=== PATIENT | female | born 1955 | race Caucasian/White ===

== ENCOUNTER 2018-06-07 18:58 | Inpatient (IN) | payer MEDICARE, OTHER ==
[~2018-06-07] VITALS: Ht 160 cm; Wt 70.7 kg
[~2018-06-07 18:58] MED LIST: AMLO5 PO; ASPI81EC PO; ATOR40TA; ATOR40TA PO; BIOTIN1 MG PO; BIOTINE PO; BUPR100 PO; BYDUREON P2 MG/0.65 SQ; CHOL10002 PO; CLOP75 PO; CONEST.9; Crestor40 MG PO; EZET10; FURO20; GLIP10 PO; GLIP5 PO; GLIP5ER PO; GLYB5; INSULANPEN SC; LISI20 PO; LOSARTAN POTAS100 MG PO; LOVA40 PO; METF500 PO; METF500C PO; METO25 PO; Nitrostat0.4 MG SL; OMEP40CA12 PO; PANT40 PO; PIOG15 PO; RXONDA4ODT MM; RXTRAM50 PO; SIMV40 PO; TRIHYD253A
[2018-06-07] MEDS ORDERED: LIRA0.6P SC (19:30)
[2018-06-07 20:18] LABS: BASOPHILS ABSOLUTE AUTO 0.05 K/mm3 (0.00-0.23); BASOPHILS PERCENT AUTO 0 % (0-2); EOSINOPHILS ABSOLUTE AUTO 0.22 K/mm3 (0.00-0.68); EOSINOPHILS PERCENT AUTO 2 % (0-6); Hematocrit 47.2 % (33.0-51.0); Hemoglobin 15.4 g/dL (11.5-16.0); IMMATURE GRAN ABSOLUTE AUTO 0.04 K/mm3 (0.00-0.10); IMMATURE GRAN PERCENT AUTO 0 % (0-1); LYMPHOCYTES ABSOLUTE AUTO 1.69 K/mm3 (0.84-5.20); LYMPHOCYTES PERCENT AUTO 15 % (21-46); MONOCYTES ABSOLUTE AUTO 0.71 K/mm3 (0.16-1.47); MONOCYTES PERCENT AUTO 6 % (4-13); Mean Corpuscular HGB Conc 32.6 g/dL (31.5-36.5); Mean Corpuscular Volume 95 fL (80-100); Mean Platelet Volume 9.6 fL (9.1-12.4); NEUTROPHILS PERCENT AUTO 76 % (41-73); Platelet Count 288 K/mm3 (150-400); RDW Standard Deviation 45.3 fL (35.1-46.3); Red Blood Cell Count 4.97 M/mm3 (3.80-5.20); White Blood Cell Count 11.31 K/mm3 (4.00-11.30)
[2018-06-07 20:48] LABS: Alanine Aminotransfer (ALT/SGP 30 U/L (12-78); Albumin, Blood 3.8 g/dL (3.4-5.0); Albumin/Globulin Ratio 1.1 (0.8-1.8); Alk Phos 129 U/L (50-136); Anion Gap 8 mmol/L (6-16); Aspartate Aminotrans (AST/SGOT 19 U/L (12-37); Bilirubin, Total 0.7 mg/dL (0.1-1.0); Blood Urea Nitrogen 22 mg/dL (8-24); Bun/Creatinine Ratio 28.1 (12.0-20.0); CO2, Blood 24 mmol/L (21-32); Calcium, Blood 9.6 mg/dL (8.5-10.1); Chloride, Blood 106 mmol/L (98-108); Creatinine, Blood 0.78 mg/dL (0.40-1.00); Globulin, Blood 3.6 g/dL (2.2-4.0); Glomerular Filtration Rate >60 (60-); Glucose, Blood 159 mg/dL (70-99); Potassium, Blood 4.2 mmol/L (3.5-5.5); Sodium, Blood 138 mmol/L (136-145); Total Protein, Blood 7.4 g/dL (6.4-8.2); Troponin I <0.015 ng/mL (0.000-0.040)
--- NOTE | 2018-06-08 00:17 | NUR ---
ASSUMED CARE OF PT PT ARRIVED VIA GURNEY, ABLE TO STAND AND TRANSFER TO BED WITH OUT DIFFICULTY. PT. DENIES CHEST PAIN HOWEVER REPORTS CONSTANT ACHING PAIN TO MID BACK. PT REPORTS SIMILAR PAIN TO PREVIOUS HEART EVENTS HOWEVER PREVIOUS EVENTS PT REPORTED PAIN TO LEFT ARM AND DENIES PAIN TO ARMS AT THIS TIME. PT. PROVIDED WITH SNACK UPON ARRIVAL AND BED SET UP FOR IN ROOM. PT VSS AT THIS TIME. NADN. CALL LIGHT IN REACH.
--- NOTE | 2018-06-08 01:53 | NUR ---
CARE ASSUMED CARE AND REPORT ASSUMED FROM BRIGID [facility]. PT C/O UPPER MID BACK PAIN. TYLENOL 650 MG PO GIVEN. UP TO TOILET WITH 1 PERSON MINIMAL ASSIST. VOIDED 300 ML. SLEEPING AT BEDSIDE. VSS. WILL CONTINUE TO MONITOR.
--- NOTE | 2018-06-08 03:46 | NUR ---
REASSESSMENT PT REMAINS IN BED, ATTEMPTING TO SLEEP. C/O MID UPPER BACK PAIN 11/08. FENTANYL 25 MCG IVP GIVEN. REMAINS BEDSIDE. VSS. WILL CONTINUE TO MONITOR.
[2018-06-08 06:06] LABS: Prothrombin Time Results 10.3 Sec (9.7-11.5)
--- NOTE | 2018-06-08 06:23 | NUR ---
SHIFT SUMMARY PT ATTEMPTED TO SLEEP DURING CARE BUT AWOKE FEW TIMES FROM BACK PAIN. FENTANYL 25 IVP GIVEN ONE TIME AND TYLENOL GIVEN X1. MID UPPER BACK PAIN PERSISTED. TROPONIN ELEVATED AND NOITIFED. HEPARIN GTT STARTED AT 13 UNIT/KG/HR PER PHARMACY. NITRO GTT STARTED AT 10 MCG/MIN FOR PAIN CONTROL. VSS. BP STABLE AND WILL MONITOR CLOSELY. BEDSIDE. PT STATUS CHANGED TO ICU. WILL GIVE BEDSIDE, HANDOFF REPORT TO DAY RN.
--- NOTE | 2018-06-08 07:17 | NUR ---
INTRODUCTARY VISIT... PT CONT TO C/O BACK PAIN AT 6-12/08 THAT HAS BEEN CONSISTANT FROM START OF PAIN EPISODE LAST NOC. PT DENIES SOB T/O EPISODES. WILL FOLLOW.
--- NOTE | 2018-06-08 09:30 | NUR ---
PT PAIN IN BACK AND ANTERIOR CHEST PERSIST AT LEVEL 4/10 BUT IS BETTER WITH POSITION CHANGE TO R SIDE. NTG AND FENT HAVE BEEN GIVEN AND TITRATED NOTED. DR PORTER HAS BEEN IN AND CATH PLANNED FOR EARLY PM. HEPARIN GTT TO BE D/C AT [address] PORTER.
--- NOTE | 2018-06-08 10:05 | NUR ---
ECHOCARD JUST NOW COMPLETING. PT CONT TO HAVE LOW GRADE PAIN ESPECIALLY IN SUPINE POSITION. VS NOTED ON 30MCG NTG GTT.
--- NOTE | 2018-06-08 12:01 | NUR ---
PT NOTED SL VELASCO, WILL FOLLOW. OTHER PAIN IS LESS AND STABLE AT THIS TIME.
--- NOTE | 2018-06-08 13:54 | NUR ---
1320 APPROX. PT TO SURGICAL TERRITORY MANAGER VIA BED WITH MARCUS. PT LEFT ON NTG GTT FOR NOW. PAIN STATUS BEFORE.
--- NOTE | 2018-06-08 15:40 | NUR ---
1510 PT RETURNED TO ICU-1 VIA BED. NO IVF INFUSING. PT C/O JOINT PAIN AND MEDICATED FROM LYING ON CAN CRIMPER TABLE. PT VS NOTED AND STABLE. R GROIN W/O BLEEDING OR HEMATOMA AND ONLY VERY SMALL DROP OF BLOOD ON DSG. DISTAL PULSES ARE GOOD. PT IS A/O, ON RA W/O RESP DISTRESS AND WILL FOLLOW.
--- NOTE | 2018-06-08 16:15 | NUR ---
PT Q15 MINUTE VS, GROIN, PULSE CHECKS STABLE. NS IVF AT 200ML STARTED.
--- NOTE | 2018-06-08 17:27 | NUR ---
HOB ELEVATED 15+ DEGREES AND R GROIN SITE CONT TO BE STABLE, PULSES PRESENT, VSS AND PT SIPPING ON LIQUIDS W/O DISTREES. NO BLEEDING OR HEMATOMA NOTED.
--- NOTE | 2018-06-08 18:18 | NUR ---
R GROIN SITE REMAINS STABLE W/O HEMATOMA, BLEEDING. PULSES AND VS ALSO STABLE. PT C/O JOINT AND BACK OF NECK PAIN THAT SEEMS TO BE POSITIONAL RATHER THAN CARDIAC IN NATURE. NO CHEST PAIN NOTED AT THIS TIME. PT UP 20+ DEG. LOG ROLLED TO VOID AND R GROIN SITE REMAINSED STABLE.
--- NOTE | 2018-06-08 20:00 | NUR ---
ASSUMED PT CARE AFTER BEDSIDE REPORT. PT HOB ELEVATED & EATING DINNER & VISITING W SISTER . R GROIN W AMANDA DRSG IN PLACE, SOFT WO HEMATOMA OR BLEEDING. 2+ PEDAL PULSES BILAT. VSS, MONITOR SHOWS SR WO ANY ECTOPY. PT IS ON ROOM AIR. CONT TO MONITOR.
--- NOTE | 2018-06-08 21:30 | NUR ---
PT WAS UP TO TOILET TO VOID, AMB IN ROOM, DID OWN HS CARE & ASSISTED BACK TO BED. R GROIN SITE CONT STABLE- SOFT & WO BLEEDING. HS MEDS GIVEN W REQUESTED SNACK. CALL LIGHT IN REACH.
--- NOTE | 2018-06-09 00:40 | NUR ---
PT AWAKE, UP TO VOID, CO NECK PAIN. STATES LIKE BEFORE WHEN RETURNING FROM TRAFFIC OFFICER. PT MED W TYLENOL & FENTANYL 25MCG. GROIN SITE CONT CLEAR, VSS. PT WAS PLACED ON O2 @ 2LNC WAS SATTING 89% ON RA WHILE SLEEPING. WILL CONT TO MONITOR.
[2018-06-09 03:45] LABS: BASOPHILS ABSOLUTE AUTO 0.04 K/mm3 (0.00-0.23); BASOPHILS PERCENT AUTO 1 % (0-2); EOSINOPHILS ABSOLUTE AUTO 0.17 K/mm3 (0.00-0.68); EOSINOPHILS PERCENT AUTO 3 % (0-6); Hematocrit 39.7 % (33.0-51.0); Hemoglobin 12.9 g/dL (11.5-16.0); IMMATURE GRAN ABSOLUTE AUTO 0.01 K/mm3 (0.00-0.10); IMMATURE GRAN PERCENT AUTO 0 % (0-1); LYMPHOCYTES ABSOLUTE AUTO 1.62 K/mm3 (0.84-5.20); LYMPHOCYTES PERCENT AUTO 29 % (21-46); MONOCYTES ABSOLUTE AUTO 0.57 K/mm3 (0.16-1.47); MONOCYTES PERCENT AUTO 10 % (4-13); Mean Corpuscular HGB 30.9 pg (26.0-34.0); Mean Corpuscular HGB Conc 32.5 g/dL (31.5-36.5); Mean Corpuscular Volume 95 fL (80-100); Mean Platelet Volume 9.8 fL (9.1-12.4); NEUTROPHILS ABSOLUTE AUTO 3.13 K/mm3 (1.96-9.15); NEUTROPHILS PERCENT AUTO 57 % (41-73); Platelet Count 221 K/mm3 (150-400); RDW Coefficient Variation 13.1 % (11.7-14.2); RDW Standard Deviation 46.5 fL (35.1-46.3); Red Blood Cell Count 4.17 M/mm3 (3.80-5.20); White Blood Cell Count 5.54 K/mm3 (4.00-11.30)
[2018-06-09 04:08] LABS: Anion Gap 6 mmol/L (6-16); Blood Urea Nitrogen 19 mg/dL (8-24); Bun/Creatinine Ratio 24.3 (12.0-20.0); CO2, Blood 23 mmol/L (21-32); Calcium, Blood 8.2 mg/dL (8.5-10.1); Chloride, Blood 108 mmol/L (98-108); Creatinine, Blood 0.78 mg/dL (0.40-1.00); Glomerular Filtration Rate >60 (60-); Glucose, Blood 308 mg/dL (70-99); Potassium, Blood 3.9 mmol/L (3.5-5.5); Sodium, Blood 137 mmol/L (136-145)
--- NOTE | 2018-06-09 06:00 | NUR ---
PT HAS RESTED SINCE MED FOR PAIN. VSS, CONT SR. R GROIN CONT SOFT & WO BLEEDING.
--- NOTE | 2018-06-09 07:40 | NUR ---
ASSUMED CARE: PT RESTING QUIETLY IN BED, C/O HEADACHE. MEDICATED FOR THIS. VSS. GROIN SITE SOFT WITH SCANT BLEEDING ON DRESSING. SITE IS SOFT, NONTENDER. NO NUMBNESS OR TINGLING, PULSES NOTED. BOLUS RUNNING PER ORDERS. PT HAS BEEN DIRECTED TO BRING IN HOME VICTOZA. NO FURTHER NEEDS OR CONCERNS AT THIS TIME.
[2018-06-09 16:10] LABS: Influenza A Negative (NEGATIVE); Influenza B Negative (NEGATIVE)
--- NOTE | 2018-06-09 18:28 | NUR ---
SHIFT SUMMARY: PT IS NOW PCU STATUS. SHE HASN'T COMPLAINED OF CP ALL DAY. HAS A HARSH CONGESETED SOUNDING COUGH BUT NOT PRODUCTIVE AT THIS TIME. MEDICATED ONCE FOR HEADACHE AND NECK PAIN. VISITORS AT BEDSIDE AT THIS TIME. NO FURTHER NEEDS OR CONCERNS
--- NOTE | 2018-06-09 20:30 | NUR ---
[place] of Care: Patient alert and oriented x4, sitting upright in bed watching tv. Denies chest pain, discomfort, SOB, or dyspnea. Does c/o neck pain 8/, prn fentanyl 25mcg given, will monitor for effect, pt states Tylenol given on day shift was not effective. VSS, heart rhythm shows normal sinus in the 70's. Peripheral IV's patent and intact. Rt groin access site WNL, soft, non-tender, very scant amount of dried blood noted on gauze beneath window dressing. Call light in reach, makes needs known. Will continue to monitor for pain, safety, comfort.
[2018-06-10 03:32] LABS: BASOPHILS ABSOLUTE AUTO 0.05 K/mm3 (0.00-0.23); BASOPHILS PERCENT AUTO 1 % (0-2); EOSINOPHILS ABSOLUTE AUTO 0.25 K/mm3 (0.00-0.68); EOSINOPHILS PERCENT AUTO 4 % (0-6); Hematocrit 38.5 % (33.0-51.0); Hemoglobin 12.7 g/dL (11.5-16.0); IMMATURE GRAN ABSOLUTE AUTO 0.02 K/mm3 (0.00-0.10); IMMATURE GRAN PERCENT AUTO 0 % (0-1); LYMPHOCYTES ABSOLUTE AUTO 1.86 K/mm3 (0.84-5.20); LYMPHOCYTES PERCENT AUTO 28 % (21-46); MONOCYTES ABSOLUTE AUTO 0.73 K/mm3 (0.16-1.47); MONOCYTES PERCENT AUTO 11 % (4-13); Mean Corpuscular HGB 31.4 pg (26.0-34.0); Mean Corpuscular Volume 95 fL (80-100); Mean Platelet Volume 9.8 fL (9.1-12.4); NEUTROPHILS ABSOLUTE AUTO 3.81 K/mm3 (1.96-9.15); NEUTROPHILS PERCENT AUTO 57 % (41-73); Platelet Count 223 K/mm3 (150-400); Red Blood Cell Count 4.04 M/mm3 (3.80-5.20); White Blood Cell Count 6.72 K/mm3 (4.00-11.30)
[2018-06-10 03:55] LABS: Anion Gap 6 mmol/L (6-16); Blood Urea Nitrogen 18 mg/dL (8-24); Bun/Creatinine Ratio 25.9 (12.0-20.0); CO2, Blood 23 mmol/L (21-32); Chloride, Blood 112 mmol/L (98-108); Creatinine, Blood 0.69 mg/dL (0.40-1.00); Glomerular Filtration Rate >60 (60-); Glucose, Blood 140 mg/dL (70-99); Sodium, Blood 141 mmol/L (136-145)
--- NOTE | 2018-06-10 05:55 | NUR ---
Shift Summary: Patient slept well throughout shift, easily roused via verbal stimuli, oriented x4. C/o pain to neck x2, effectively managed with prn fentanyl 25mcg x2 and prn tylenol x1. Denies chest pain, discomfort, or pressure throughout shift. Morning lab values showed increase in troponin form 7.38 to 7.87, contacted Dr. Driscoll, no new orders received. Independent in room, x2 unmeasured voids. Peripheral IV's remain patent and intact. Pleasant and cooperative with staff, makes needs known. Will continue to monitor until report to day shift RN.
--- NOTE | 2018-06-10 07:48 | NUR ---
ASSUMED CARE: PT IS RESTING IN BED. C/O HEADACHE AND SHOULDER PAIN. COUGH NOTED, SPUTUM SAMPLE SENT. DENIES CHEST PAIN OR OTHER CONCERNS AT THIS TIME. WILL MEDICATE WHEN ABLE
--- NOTE | 2018-06-10 12:00 | NUR ---
SPOKE WITH DR JACKSON REGARDING PT'S HEADACHE AND INCREASED TROPONIN. SEE NEW ORDERS. ALSO TOLD ABOUT PT'S VICTOZA THAT HAS BEEN UNAVAILABLE DUE TO HOSPITAL NOT HAVING IT.
[2018-06-10] MEDS ORDERED: GUAI600T33 PO (14:37)
[2018-06-10] MEDS ORDERED: ACET325 PO (14:37)
[2018-06-10] MEDS ORDERED: RANO500T PO (14:38)
[2018-06-10] MEDS ORDERED: ALBU90OI INH (14:38)
[2018-06-10] MEDS ORDERED: TIOT18 INH (14:39)
[2018-06-10] MEDS ORDERED: AZIT250 PO (14:39)
--- NOTE | 2018-06-10 16:14 | NUR ---
PT'S IV'S DC'D WNL. PT GIVEN INSTRUCTIONS ABOUT FOLLOW UP APPOINTMENTS AND MEDICATIONS TO TAKE AT HOME. MEDS FAXED TO [facility]. FOR QUESTIONS PHARMACY WAS REFERRED TO DR JACKSON. PT WAS AMBULATORY UPON DISCHARGE AND TAXI WAS CALLED TO TAKE HER HOME. NO FURTHER QUESTIONS OR CONCERNS
== END 2018-06-10 16:01 | disposition home or self-care (01) | DRG 281 ==
LOC: ER 18:58 → ERHOLD 18:59 → ICUE 18:59 → ERHOLD 18:59 → ICUE 23:24
PROVIDERS: Emergency Medicine; Family Medicine; ADMIT Internal Medicine
PROC: B2111ZZ Fluoroscopy of Multiple Coronary Arteries using Low Osmolar Contrast (ICD-10-PCS; principal; 2018-06-08)
PROC: B2121ZZ Fluoroscopy of Single Coronary Artery Bypass Graft using Low Osmolar Contrast (ICD-10-PCS; 2018-06-08)
PROC: 4A023N7 Measurement of Cardiac Sampling and Pressure, Left Heart, Percutaneous Approach (ICD-10-PCS; 2018-06-08)
DX: I21.4 Non-ST elevation (NSTEMI) myocardial infarction (principal); J44.1 Chronic obstructive pulmonary disease with (acute) exacerbation; Z95.1 Presence of aortocoronary bypass graft; M79.7 Fibromyalgia; E11.40 Type 2 diabetes mellitus with diabetic neuropathy, unspecified; Z79.4 Long term (current) use of insulin; Z79.82 Long term (current) use of aspirin; I25.10 Atherosclerotic heart disease of native coronary artery without angina pectoris; F17.200 Nicotine dependence, unspecified, uncomplicated; I10 Essential (primary) hypertension; E78.5 Hyperlipidemia, unspecified; Z79.02 Long term (current) use of antithrombotics/antiplatelets; I95.9 Hypotension, unspecified
CPT/HCPCS: 36415; 71046; 80048; 80053; 82947; 83880; 84484; 85025; 85610; 85730; 86850; 86900; 86901; 87070; 87205; 87804; 93005; 93010; 93306; 93459; 96365; 96366; 96374; 96375; 96376; 99152; 99153; 99285-25; C1769; C1894; G0378; J0696; J1644; J1815; J2250; J2405; J3010; J7030; J7040; Q9967

== ENCOUNTER 2022-05-14 08:39 | Day surgery (SDC) | payer MEDICARE, OTHER ==
[~2022-05-14] VITALS: Ht 160 cm; Wt 65.3 kg
[~2022-05-14 08:39] MED LIST changes: +ACET325 PO; +ALBU90OI INH; +AZIT250 PO; +GUAI600T33 PO; +LIRA0.6P SC; +RANO500T PO; +TIOT18 INH
--- NOTE | 2022-05-14 12:01 | NUR ---
05/14/22 1201 Charisma Bustamante RECEIVED REPORT ON PT FROM RN JOANIE OLVERA. PT'S BLOOD PRESSURE AFTER FIRST READING IN NOW OVER 100 SBP (SEE VITALS). UNABLE TO PROCEED WITH UPPER ENDOSCOPY DUE TO LOW BLOOD PRESSURE DESPITE MULTIPLE DOSES OF EPHEDRINE AND SWITCHING TO VERSED AND STOPPING PROPOFOL. PT RESCHEDULED TO ThuMAY 19, 2022 CHECK IN TIME 1300-PROCEDURE TIME 1415 FOR UPPER ENDOSCOPY. D/C TEACHING DONE WITH REGARDS TO STARTING PLAVIX AND THURSDAY AND HOLDING PLAVIX THU/THU/THU/THU FOR UPPER ENDOSCOPY PROCEDURE. MD DOMINGO WILL ADDRESS THU ON WHEN TO RESTART PLAVIX. PT OBSERVED FOR 50MINUTES IN RECOVERY AND D/C TO HOME WITH W/C ASSIST TO CAR.
--- NOTE | 2022-05-14 12:37 | NUR ---
05/14/22 1237 JOANIE TORRES UPPER ENDOSCOPY - WAS ABORTED PRIOR TO STARTING PT COULD NOT MAINTAIN HER BP DESPITE EPHEDRINE AND MINIMAL SEDATION WITH COLONSCOPY. IT IS RESCHEDULED FOR THURSDAY WITH MAC
== END 2022-05-14 12:03 | disposition home or self-care (01) ==
LOC: ORSCSDS 08:39
PROVIDERS: Internal Medicine Gastroenterology
PROC: 0DBH8ZX Excision of Cecum, Via Natural or Artificial Opening Endoscopic, Diagnostic (ICD-10-PCS; principal; 2022-05-14 10:00)
PROC: 0DBM8ZX Excision of Descending Colon, Via Natural or Artificial Opening Endoscopic, Diagnostic (ICD-10-PCS; principal; 2022-05-14 10:00)
PROC: 0DBL8ZX Excision of Transverse Colon, Via Natural or Artificial Opening Endoscopic, Diagnostic (ICD-10-PCS; principal; 2022-05-14 10:00)
PROC: 0DBE8ZX Excision of Large Intestine, Via Natural or Artificial Opening Endoscopic, Diagnostic (ICD-10-PCS; principal; 2022-05-14 10:00)
PROC: 0DBK8ZX Excision of Ascending Colon, Via Natural or Artificial Opening Endoscopic, Diagnostic (ICD-10-PCS; principal; 2022-05-14 10:00)
DX: R19.5 Other fecal abnormalities (principal); Z86.010 Personal history of colon polyps; K22.70 Barrett's esophagus without dysplasia; D12.0 Benign neoplasm of cecum; D12.2 Benign neoplasm of ascending colon; D12.4 Benign neoplasm of descending colon; K57.30 Diverticulosis of large intestine without perforation or abscess without bleeding; Z79.02 Long term (current) use of antithrombotics/antiplatelets; F17.210 Nicotine dependence, cigarettes, uncomplicated; Z79.899 Other long term (current) drug therapy; E03.9 Hypothyroidism, unspecified; E78.5 Hyperlipidemia, unspecified; I12.9 Hypertensive chronic kidney disease with stage 1 through stage 4 chronic kidney disease, or unspecified chronic kidney disease; E11.22 Type 2 diabetes mellitus with diabetic chronic kidney disease; N18.30 Chronic kidney disease, stage 3 unspecified; Z79.4 Long term (current) use of insulin; Z79.84 Long term (current) use of oral hypoglycemic drugs
CPT/HCPCS: 82947; 88305; J2250; J2704; J7120

== ENCOUNTER 2022-06-11 13:33 | Day surgery (SDC) | payer MEDICARE, OTHER ==
[~2022-06-11] VITALS: Ht 160 cm; Wt 67.2 kg
[2022-06-11] MEDS ORDERED: INSULANI (13:50)
== END 2022-06-11 16:30 | disposition home or self-care (01) ==
LOC: ORSCSDS 13:33
PROVIDERS: Internal Medicine Gastroenterology
PROC: 0DB58ZX Excision of Esophagus, Via Natural or Artificial Opening Endoscopic, Diagnostic (ICD-10-PCS; principal; 2022-06-11 14:45)
PROC: 0DB68ZX Excision of Stomach, Via Natural or Artificial Opening Endoscopic, Diagnostic (ICD-10-PCS; principal; 2022-06-11 14:45)
DX: K22.70 Barrett's esophagus without dysplasia (principal); R19.5 Other fecal abnormalities; K20.90 Esophagitis, unspecified without bleeding; I10 Essential (primary) hypertension; J44.9 Chronic obstructive pulmonary disease, unspecified; E11.9 Type 2 diabetes mellitus without complications; Z95.1 Presence of aortocoronary bypass graft; F17.210 Nicotine dependence, cigarettes, uncomplicated; Z79.82 Long term (current) use of aspirin; Z79.4 Long term (current) use of insulin; Z79.84 Long term (current) use of oral hypoglycemic drugs; Z79.899 Other long term (current) drug therapy
CPT/HCPCS: 82947; 88305; 88342; J2704; J7120

== ENCOUNTER 2023-02-09 16:14 | Emergency (ER) | payer MEDICARE, OTHER ==
[~2023-02-09] VITALS: Ht 157.5 cm; Wt 64.9 kg
[~2023-02-09 16:14] MED LIST changes: -ONGLYZA5 MG; -OZEMPIC1 MG/0.72
[2023-02-09 16:54] LABS: BASOPHILS ABSOLUTE AUTO 0.05 K/mm3 (0.00-0.23); BASOPHILS PERCENT AUTO 1 % (0-2); EOSINOPHILS ABSOLUTE AUTO 0.16 K/mm3 (0.00-0.68); EOSINOPHILS PERCENT AUTO 2 % (0-6); Hematocrit 42.4 % (33.0-51.0); Hemoglobin 14.2 g/dL (11.5-16.0); IMMATURE GRAN ABSOLUTE AUTO 0.04 K/mm3 (0.00-0.10); IMMATURE GRAN PERCENT AUTO 1 % (0-1); LYMPHOCYTES ABSOLUTE AUTO 2.27 K/mm3 (0.84-5.20); LYMPHOCYTES PERCENT AUTO 26 % (21-46); MONOCYTES ABSOLUTE AUTO 0.57 K/mm3 (0.16-1.47); MONOCYTES PERCENT AUTO 7 % (4-13); Mean Corpuscular HGB 31.3 pg (26.0-34.0); Mean Corpuscular HGB Conc 33.5 g/dL (31.5-36.5); Mean Corpuscular Volume 94 fL (80-100); Mean Platelet Volume 9.6 fL (9.1-12.4); NEUTROPHILS ABSOLUTE AUTO 5.71 K/mm3 (1.96-9.15); NEUTROPHILS PERCENT AUTO 65 % (41-73); Platelet Count 278 K/mm3 (150-400); RDW Standard Deviation 44.7 fL (35.1-46.3); Red Blood Cell Count 4.53 M/mm3 (3.80-5.20)
[2023-02-09 17:20] LABS: Albumin, Blood 3.9 g/dL (3.4-5.0); Albumin/Globulin Ratio 1.3 (0.8-1.8); Bilirubin, Total 0.5 mg/dL (0.1-1.0); Bun/Creatinine Ratio 31.6 (12.0-20.0); Calcium, Blood 9.8 mg/dL (8.5-10.1); Creatinine, Blood 0.92 mg/dL (0.40-1.00); Potassium, Blood 4.1 mmol/L (3.5-5.5); Total Protein, Blood 6.9 g/dL (6.4-8.2)
[2023-02-09] MEDS ORDERED: ONGLYZA5 MG (20:37)
[2023-02-09] MEDS ORDERED: OZEMPIC1 MG/0.72 (20:38)
[2023-02-09 21:17] VITALS: BP 115/88
== END 2023-02-09 21:19 | disposition home or self-care (01) ==
LOC: ER 16:14
PROVIDERS: Physician Assistant
DX: H57.02 Anisocoria (principal); I25.2 Old myocardial infarction; E11.9 Type 2 diabetes mellitus without complications; F17.210 Nicotine dependence, cigarettes, uncomplicated; Z86.73 Personal history of transient ischemic attack (TIA), and cerebral infarction without residual deficits; Z79.82 Long term (current) use of aspirin; Z79.84 Long term (current) use of oral hypoglycemic drugs; Z79.4 Long term (current) use of insulin; Z79.899 Other long term (current) drug therapy; Z88.0 Allergy status to penicillin; Z88.8 Allergy status to other drugs, medicaments and biological substances; Z98.41 Cataract extraction status, right eye
CPT/HCPCS: 70450; 80053; 85025; 99285-25

== ENCOUNTER → 2023-02-09 | Outpatient (CLI) | payer MEDICARE, OTHER ==
[~2023-02-09] MED LIST changes: +INSULANI; +ONGLYZA5 MG; +OXAYDO5 M1 PO; +OZEMPIC1 MG/0.72
== END | disposition home or self-care (01) ==
LOC: LAB 07:48 → PLD 07:48 → LAB SHORT 07:48
DX: L82.1 Other seborrheic keratosis (principal)
CPT/HCPCS: 88305

== ENCOUNTER 2024-11-27 17:25 | Emergency (ER) | payer MEDICARE, OTHER ==
[~2024-11-27] VITALS: Ht 160 cm; Wt 61.2 kg
[~2024-11-27 17:25] MED LIST changes: +ONGLYZA5 MG; +OZEMPIC1 MG/0.72
[2024-11-27] MEDS ORDERED: Ondansetron HCl 2 MG / ML 2ML Vial IV ONE (17:35)
[2024-11-27] MEDS ORDERED: TRULICITY0.75 MG/01 SC (17:58)
[2024-11-27] MEDS ORDERED: NS 1,000 ML IV SCH (18:05)
[2024-11-27 18:14] LABS: BASOPHILS ABSOLUTE AUTO 0.03 K/mm3 (0.00-0.23); BASOPHILS PERCENT AUTO 0 % (0-2); EOSINOPHILS ABSOLUTE AUTO 0.01 K/mm3 (0.00-0.68); EOSINOPHILS PERCENT AUTO 0 % (0-6); Hematocrit 39.8 % (33.0-51.0); Hemoglobin 13.5 g/dL (11.5-16.0); IMMATURE GRAN ABSOLUTE AUTO 0.08 K/mm3 (0.00-0.10); IMMATURE GRAN PERCENT AUTO 1 % (0-1); LYMPHOCYTES ABSOLUTE AUTO 0.83 K/mm3 (0.84-5.20); LYMPHOCYTES PERCENT AUTO 5 % (21-46); MONOCYTES ABSOLUTE AUTO 1.49 K/mm3 (0.16-1.47); MONOCYTES PERCENT AUTO 9 % (4-13); Mean Corpuscular HGB 31.3 pg (26.0-34.0); Mean Corpuscular HGB Conc 33.9 g/dL (31.5-36.5); Mean Corpuscular Volume 92 fL (80-100); Mean Platelet Volume 9.5 fL (9.1-12.4); NEUTROPHILS PERCENT AUTO 85 % (41-73); Platelet Count 256 K/mm3 (150-400); RDW Coefficient Variation 13.3 % (11.7-14.2); RDW Standard Deviation 45.9 fL (35.1-46.3); Red Blood Cell Count 4.31 M/mm3 (3.80-5.20); White Blood Cell Count 16.34 K/mm3 (4.00-11.30)
[2024-11-27 18:36] LABS: Albumin, Blood 3.3 g/dL (3.4-5.0); Bilirubin, Total 0.8 mg/dL (0.1-1.0); Bun/Creatinine Ratio 32.7 (12.0-20.0); Calcium, Blood 9.6 mg/dL (8.5-10.1); Creatinine, Blood 1.13 mg/dL (0.40-1.00); Globulin, Blood 3.4 g/dL (2.2-4.0); Potassium, Blood 4.3 mmol/L (3.5-5.5); Total Protein, Blood 6.7 g/dL (6.4-8.2)
[2024-11-27] MEDS ORDERED: Tamsulosin HCl 0.4 MG Cap PO ONE (18:45)
[2024-11-27] MEDS ORDERED: Morphine Sulfate 4 MG/1 ML Injection IV ONE (18:45)
[2024-11-27 19:50] LABS: Source, Urine Clean Catch
[2024-11-27 19:55] LABS: Appearance, Urine Hazy (Clear); Bilirubin, Urine Neg (Neg); Blood, Urine 1+ (Neg); Color, Urine Yellow (P-Yellow); Glucose Qualitative, Urine 2+ (Neg); Ketones, Urine 4+ (Neg); Leukocyte Esterase, Urine 1+ (Neg); Nitrite, Urine Neg (Neg); Protein, Urine 2+ (Neg); Specific Gravity, Urine 1.025 (1.003-1.022); Urobilinogen, Urine NORM (Normal)
[2024-11-27 20:13] LABS: Amorphous Light (0-Heavy); Bacteria Few /hpf; Mucus Light (0-Heavy); Red Blood Cells, Urine 0-2 /hpf (0-2); Squamous Epithelial Cells Rare /hpf (Few); Uric Acid Crystals Mod /hpf
[2024-11-27] MEDS ORDERED: CefTRIAXone Sodium 1,000 MG in NS 100 ML IV ONE (20:30)
[2024-11-27 22:30] VITALS: BP 140/90
== END 2024-11-27 23:20 | disposition short-term general hospital (02) ==
LOC: ER 17:25
PROVIDERS: Emergency Medicine
DX: N13.6 Pyonephrosis (principal); E11.65 Type 2 diabetes mellitus with hyperglycemia; N28.9 Disorder of kidney and ureter, unspecified; E78.5 Hyperlipidemia, unspecified; F17.210 Nicotine dependence, cigarettes, uncomplicated; Z86.73 Personal history of transient ischemic attack (TIA), and cerebral infarction without residual deficits; Z87.442 Personal history of urinary calculi; Z87.11 Personal history of peptic ulcer disease; Z88.0 Allergy status to penicillin; Z88.8 Allergy status to other drugs, medicaments and biological substances; Z79.82 Long term (current) use of aspirin; Z79.85 Long-term (current) use of injectable non-insulin antidiabetic drugs; Z79.84 Long term (current) use of oral hypoglycemic drugs; Z79.4 Long term (current) use of insulin; Z79.02 Long term (current) use of antithrombotics/antiplatelets; Z79.899 Other long term (current) drug therapy
CPT/HCPCS: 74176; 80053; 81001; 83690; 85025; 87086; 96361; 96365-59; 96375; 99285-25; A9270; J0696; J2270; J2405; J7030

== ENCOUNTER → 2025-03-13 | Outpatient (CLI) | payer MEDICARE, OTHER ==
[~2025-03-13] MED LIST changes: +TRULICITY0.75 MG/01 SC
== END ==
LOC: LAB 07:45 → LAB SHORT 07:45
PROVIDERS: Internal Medicine Endocrinology, Diabetes & Metabolism
DX: E27.8 Other specified disorders of adrenal gland (principal)
CPT/HCPCS: 82570